=== PATIENT | female | born 1970 | race Caucasian/White ===

== ENCOUNTER 2020-08-19 06:36 | Day surgery (SDC) | payer BC ==
[2020-08-19] MEDS ORDERED: SODIUM CHLORIDE 0.9% 1000 ML 1,000 ML ONE (07:20)
--- NOTE | 2020-08-19 07:51 | Anesthesia Day of Surgery ---
Anesthesia Day of Surgery - Day of Surgery Patient Examined: Yes Patient H&P Reviewed: Yes Patient is NPO: Yes
--- NOTE | 2020-08-19 07:51 | Anesthesia Consultation ---
Anesthesia Consult and Med Hx Date of service: 08/19/20 - Airway Anesthetic Teeth Evaluation: Good ROM Head & Neck: Adequate Mental/Hyoid Distance: Adequate Mallampati Class: Class III Intubation Access Assessment: Possibly Difficult - Pre-Operative Health Status ASA Pre-Surgery Classification: ASA2 Proposed Anesthetic Plan: MAC - Cardiovascular System Hx Hypertension: Yes - Central Nervous System Hx Neuromuscular Disorder: Yes (lupus, fibromyalgia) - Gastrointestinal Hx Gastroesophageal Reflux Disease: Yes
[2020-08-19] MEDS ORDERED: LIDOCAINE MPF (2%) 20 MG/1 ML VIAL 5 ML ONE (07:52)
[2020-08-19] MEDS ORDERED: propofoL 200 MG/20 ML VIAL IV ONE ×2 (07:52→08:03)
[2020-08-19] MEDS ORDERED: SODIUM CHLORIDE 0.9% 1000 ML 1,000 ML IV SCH (08:00)
--- NOTE | 2020-08-19 08:42 | Operative Report ---
PROCEDURE: EGD with biopsy. INDICATIONS: This is a 50-year-old female who has an underlying history of lupus, occasional use of NSAIDs, had been complaining of some epigastric pain and discomfort. EGD was done to make sure there was not any significant upper GI pathology present and no evidence of any peptic ulcer disease. DESCRIPTION OF PROCEDURE: The procedure was done after getting informed consent with MAC anesthesia. Instrument was passed through the hypopharynx into the esophagus, which showed some [id number] erosive esophagitis. Biopsy was done from the distal esophagus as well as from the mid esophagus to assess for the severity of the erosive esophagitis and for eosinophilic esophagitis. The stomach showed gastritis and gastric erosion in the antrum. Pylorus was patent. The duodenum in the first and second portion appeared normal. Biopsy was done from the gastric antrum, gastric body and angular incisura to rule out for H. pylori and atrophic gastritis. There was minimal bleeding with the procedure and no complications associated with the procedure. ASSESSMENT: Epigastric pain, mild to moderate erosive esophagitis, gastric erosion, gastritis, rule out eosinophilic esophagitis. PLAN: To treat the patient with PPI. Encouraged the patient to take probiotics. Avoid aspirin and aspirin-related products for the next few days. A colonoscopy will be done as part of colon polyp screening since the patient has a family history of cancer and the patient will be asked to follow up in the office in 1-2 weeks' time. The procedure was done in the GI lab with the assistance of the GI lab team, which included RN, Michelle Hackett; Cameron rubin and with the assistance of Anesthesia. JOB# [id number] LUKE/AYDE
--- NOTE | 2020-08-19 08:42 | Procedure Note ---
Date of procedure: 08/19/20 Pre-op diagnosis: Epigastric Pain/ Colon Polyp Screening/ F/H/O Cancer Post-op diagnosis: other (Mild to Moderate Erosive Esophagitis/ Gastric Erosion/Gastritis/ R/O Eosinophilic Esophagitis/ Normal Colon Mucosa/ Minor,Internal and External Hemorrhoids) Procedure: EGD with biopsy and Colonoscopy Anesthesia: [facility] [place]geon: KENDRICK MILLER Estimated blood loss: minimal Pathology: list Specimen disposition: to lab Condition: stable Disposition: same day (Treat with PPI and OTC Probiotic. Avoid aspirin and NSAID for 5 days' otherwise resume home medication. Follow up in 1 to 2 weeks ([phone]).)
--- NOTE | 2020-08-19 09:09 | Operative Report ---
PROCEDURE: Colonoscopy. INDICATIONS: This is a 50-year-old female who is having a colonoscopy done as part of colon polyp screening. She has a strong family history of cancer. Father had head and neck cancer. Other family members have had history of breast cancer. She has an underlying history of lupus. EGD because of epigastric pain had shown [id number] erosive esophagitis, gastric erosion and gastritis. Colonoscopy was done to make sure as part of colon polyp screening. DESCRIPTION OF PROCEDURE: The procedure was done after getting informed consent with MAC anesthesia. Initial rectal exam was unremarkable. Instrument was passed through the rectum onto the cecum, which was identified with ileocecal valve and the appendiceal orifice. The cecum was also examined on the retroverted view. No additional pathology was noted. The terminal ileum was intubated, showed normal mucosa. Visualization was fair to good. Cecum, ascending colon, transverse colon, descending colon and sigmoid showed normal mucosa. There was no evidence of any polyps, colitis or diverticular disease and the rectum showed minor internal as well as some minor external hemorrhoids. There was no bleeding associated with the colonoscopy, no complications associated with the procedure. ASSESSMENT: Colon polyp screening, normal colon mucosa, no colon polyps or diverticula noted. Minor internal as well as external hemorrhoids. Normal ileal mucosa. PLAN: Treat the patient with PPI because of the EGD findings of [id number] erosive esophagitis, gastritis and gastric erosion and also encouraged the patient to take probiotics. Avoid aspirin and aspirin-related products for the next few days and follow up in the office in 1-2 weeks' time. Procedure was done in the GI lab with assistance of the GI lab team, which included Michelle ALEXANDRA; Cameron rubin and with assistance of anesthesia. JOB# [id number] LUKE/AYDE
[2020-08-19 09:20] VITALS: BP 139/73
--- NOTE | 2020-08-19 10:19 | Post Anesthesia Evaluation ---
- Post Anesthesia Evaluation Patient Participated: Yes Airway Patent: Yes Stable Respiratory Function: Yes Nausea/Vomiting: No Temp > 96.8F: Yes Pain Manageable: Yes Adequeate Hydration: Yes Anesthesia Complications: No Block Receding Appropriately: Not Applicable Patient on Ventilator: No
== END 2020-08-19 09:35 | disposition home or self-care (01) ==
LOC: GIO 06:36
DX: R10.9 Unspecified abdominal pain (principal); R10.13 Epigastric pain; R14.0 Abdominal distension (gaseous); K57.30 Diverticulosis of large intestine without perforation or abscess without bleeding; K64.8 Other hemorrhoids; K21.00 Gastro-esophageal reflux disease with esophagitis, without bleeding; K29.70 Gastritis, unspecified, without bleeding; I10 Essential (primary) hypertension; Z79.899 Other long term (current) drug therapy; Z88.8 Allergy status to other drugs, medicaments and biological substances
CPT/HCPCS: 43239; 45378; 88305; 88342; J2704; J7030